=== PATIENT | male | born 1965 | race Caucasian/White ===

== ENCOUNTER 2023-08-17 14:54 | Emergency (ER) | payer OTHER, SELFPAY ==
[2023-08-17 15:03] VITALS: BP 124/82
[2023-08-17 15:22] LABS: % Basophils 0.4 % (0-2); % Immature Granulocytes 0.3 % (0-0.5); % Lymphocytes 34.2 % (20.5-51.1); % Monocytes 17.7 % (1.7-9.3); % Neutrophils 44.4 % (42.2-75.2); Absolute Eosinophils 0.2 10^3/uL (0-0.7); Absolute Lymphocytes 2.5 10^3/uL (1.2-3.4); Absolute Monocytes 1.3 10^3/uL (0.1-0.6); Absolute Neutrophils 3.3 10^3/uL (1.4-6.5); Hemoglobin 15.8 g/dL (13.0-18.0); Mean Corp Hgb Conc. 33.6 g/dL (33.0-37.0); Mean Corpuscular Hgb 27.7 pg (27.0-31.0); Mean Corpuscular Volume 82.5 fL (80.0-94.0); Mean Platelet Volume 9.6 fL (7.4-10.4); Nucleated Red Blood Cells % 0 % (-); Platelet Count 190 10^3/uL (130-400); Red Cell Dist. Width 13.2 % (11.5-14.5); White Blood Cell Count 7.4 10^3/uL (4.8-10.8)
[2023-08-17 15:38] LABS: ALT (SGPT) 29 U/L (0-50); AST (SGOT) 32 U/L (17-59); Albumin 4.6 g/dl (3.5-5.0); Alkaline Phosphatase 60 U/L (38-126); Blood Urea Nitrogen 18 mg/dl (9-20); Calcium 8.7 mg/dl (8.4-10.2); Carbon Dioxide 27 mmol/L (22-30); Chloride 100 mmol/L (98-107); Glucose 117 mg/dl (70-99); Sodium 139 mmol/L (135-145); Total Bilirubin 0.5 mg/dl (0.2-1.3); Total Protein 7.7 g/dl (6.3-8.2); eGFR > 60.00
[2023-08-17 15:50] LABS: Troponin I < 0.012 ng/ml
[2023-08-17 17:51] VITALS: BP 118/79
[2023-08-17 17:52] VITALS: BMI 24.9
[2023-08-17 18:50] LABS: Troponin I < 0.012 ng/ml
[2023-08-17 18:58] LABS: Lipase 123 U/L (23-300)
--- NOTE | 2023-08-17 18:59 | ED.GENMED ---
History of Present Illness
General
Chief Complaint: Cardiac Symptoms
Source: patient and spouse
Exam Limitations: none
Time Seen by Provider: 08/17/23 18:12
Nursing documentation reviewed up to this point in time: agreed with
Travel History
Have you had any contact with someone who has COVID-19?: No
Do you have any symptoms of coronavirus? Fever > 100 degrees, chills, cough, shortness of breath, sore throat, loss of taste or smell, muscle aches, or headache?: No
History of Present Illness
History of Present Illness:
Patient presents to ED secondary to intermittent episodes of midsternal chest pain over the past 2 days. Chest pain lasting few seconds to minutes, sharp, severity of which takes patient's breath away, without radiation, without any alleviating or
exacerbating factors. Denies trauma. Denies fever or chills. Of note, 4 days ago, patient reports having had gathering at his house with number of gas, where there was home-cooked meals as well as alcohol. Patient does admit to having had small
amount of red wine only. 24 hours later, patient states that he woke up at night with at least 6-7 vomiting episodes, followed by nonbloody diarrhea. Patient was able to take 'medication' from [facility] which subsided vomiting and diarrhea
episodes. Following day, is when aforementioned chest pain/spasm started, associated with sweatiness. Denies family history of heart disease. Denies previous history of similar symptoms. Patient's spouse has been experiencing similar symptoms,
as well as other guests that were present on Monday, with some still experiencing symptoms.
Review of Systems
Review of Systems
Allergies reviewed?: Yes
All Other Systems: ROS reviewed and negative except as documented in HPI and ROS
Constitutional: Reports no symptoms
EENT: Reports no symptoms
Respiratory: Reports no symptoms
Cardiac: Reports chest pain
ABD/GI: Reports abdominal pain, nausea, vomiting and diarrhea
: Reports no symptoms
Musculoskeletal: Reports no symptoms
Skin: Reports no symptoms
Neurological: Reports no symptoms
Phy Exam
Physical Exam
Physical Exam:
Physical Exam
General: no apparent distress, not acutely ill. afebrile
Head: nc/at. eomi
Neck: supple. no meningeal signs.
Heart: s1/s2 regular rate and rhythm, no murmur. equal radial pulses.
Lungs: no acute respiratory distress. clear bilaterally. chest wall nontender to palpation.
Abdomen: normal bowel sounds. not tender.
Neuro: alert and oriented. no focal neurological deficits
Skin: no rash
Psychiatric: well kept. interactive and cooperative
Extremities: no edema. no calf tenderness.
Scores
Heart Score for Chest Pain Patients
STEMI patient?: Not applicable
Course
Orders/Labs/Results
Orders:
Orders
08/17/23 15:05
Electrocardiogram (*1) Urgent
Reason for Study: Abdominal Pain
EKG- Treatment ONCE
08/17/23 15:14
Complete Blood Count/With Diff Urgent
Comprehensive Metabolic Panel Urgent
Lipase Urgent
Comment: ADD ON
Magnesium Urgent
Comment: ADD ON
Troponin I Urgent
08/17/23 18:12
Add On- LAB Urgent
Tests Added?: lipase, magnesium
08/17/23 18:17
Electrocardiogram (*1) Urgent
Reason for Study: Chest Pain
EKG- Treatment ONCE
08/17/23 18:18
Troponin I Urgent
08/17/23 19:07
COVID-19 Antigen Urgent
Source: Nasal Swab
Abnormal Lab Results
08/17/23
15:14
Absolute Monos (auto) 1.3 H 10^3/uL
(0.1-0.6)
Monocytes % 17.7 H %
(1.7-9.3)
Glucose 117 H mg/dl
(70-99)
08/17/23 15:14
08/17/23 15:14
Vital Signs
Initial and Last Documented VS:
Initial Vital Signs
Temp Pulse Resp BP Pulse Ox
98.7 F 91 18 124/82 100
08/17/23 15:03 08/17/23 15:03 08/17/23 15:03 08/17/23 15:03 08/17/23 15:03
Last Documented Vital Signs
Temp Pulse Resp BP Pulse Ox
98.7 F 70 11 112/82 99
08/17/23 15:03 08/17/23 19:00 08/17/23 19:00 08/17/23 19:00 08/17/23 19:00
MDM/Problems Addressed
MDM/Problems Addressed:
Patient with an unremarkable workup in ED, and remains hemodynamically stable during prolonged course of observation in ED. Patient's presenting symptoms, likely secondary to viral illness versus food poisoning versus esophagitis versus ulcer.
Doubt ACS at this time. Patient is symptom-free at time of discharge. Advised PCP and/or referred to GI physician for reevaluation. However, if symptoms become more persistent or evolve, advised to return to ED for reevaluation. Patient and
spouse expressed understanding at time of discharge.
*Critical Care Note
Total Time (30-74mins, 75-104mins- exclusive of procedures): Not Applicable
ED Attending Note
-
Portions of this chart may have been created with voice recognition software.� Occasional wrong word or��sound alike� substitutions may have occurred due to the inherent limitations of voice recognition software.
Discharge Plan
Departure
Patient Disposition: Home (Routine Discharge)
Date of Disposition: 08/17/23
Time of Disposition: 18:59
Patient with high blood pressure during this ER visit?: Yes
Discharge Problem:
Viral syndrome
Instructions: Diarrhea in teens and adults, Nausea and Vomiting, Adult (DC)
Referrals:
Mela Alonzo MD [Family Provider] -
Judy Victoria, DO [Active] -
Activity Restrictions/Additional Instructions:
As discussed, please follow-up with your primary care physician and/or referred GI physician for continual evaluation and treatment. Please return to ED with worsening symptoms, i.e. fever/worsening pain/vomiting.
Interventions
Interventions:
*Risk Screen - Suicide Last Done: 08/17/23 17:52
*General Assessment Last Done: 08/17/23 17:52
*Neglect/Abuse Screening Last Done: 08/17/23 17:52
ED- Fall Risk Assessment Last Done: 08/17/23 19:00
*ED COVID-19 Vaccine History Last Done: 08/17/23 17:52
*Nursing Disposition Last Done: 08/17/23 19:00
VO-Ynuvma-Bsttbcmabx Assessment Last Done: 08/17/23 17:52
ED- Cardiac Assessment Last Done: 08/17/23 17:52
ED- Pulmonary Assessment Last Done: 08/17/23 17:52
Discharge Date and Time
Discharge Date/Time: 08/17/23 19:32
Print Language: [id number]
[2023-08-17 19:00] VITALS: BP 112/82
[2023-08-17 19:31] LABS: COVID-19 Antigen Negative (Negative)
== END 2023-08-17 19:32 | disposition home or self-care (01) ==
LOC: EMR 14:54
PROVIDERS: Emergency Medicine; EMERGENCY PHYSICIAN Emergency Medicine; FAMILY PHYSICIAN Family Medicine
DX: B34.9 Viral infection, unspecified (principal); R03.0 Elevated blood-pressure reading, without diagnosis of hypertension
CPT/HCPCS: 99284; 80053; 83690; 83735; 84484; 85025; 87811; 93005